=== PATIENT | female | born 1960 | race Native Hawaiian/Other Pacific Islander ===

== ENCOUNTER 2022-10-22 15:48 | Outpatient (CLI) | payer OTHER | END 2022-10-22 19:04 | disposition home or self-care (01) | LOC: RAD 15:48 | PROVIDERS: ATTEND Nurse Practitioner Family | DX: R05.3 Chronic cough (principal) ==

== ENCOUNTER 2022-11-12 08:56 | Outpatient (CLI) | payer OTHER | END 2022-11-12 21:01 | disposition home or self-care (01) | LOC: RESP 08:56 | PROVIDERS: ATTEND Nurse Practitioner Family | DX: J44.1 Chronic obstructive pulmonary disease with (acute) exacerbation (principal) ==

== ENCOUNTER 2022-12-16 08:33 | Outpatient (CLI) | payer OTHER | END 2022-12-16 19:03 | disposition home or self-care (01) | LOC: CT 08:33 | PROVIDERS: ATTEND Nurse Practitioner Family | DX: J44.1 Chronic obstructive pulmonary disease with (acute) exacerbation (principal) | CPT/HCPCS: 36415; 82565; 84520; Q9963 ==